=== PATIENT | female | born 2000 | race African-American/Black ===

== ENCOUNTER 2023-11-27 07:37 | Emergency (ER) | payer BC, MEDICAID ==
[~2023-11-27] VITALS: Ht 167.6 cm; Wt 81.6 kg
[2023-11-27 07:49] VITALS: O2SAT 99
[2023-11-27 08:32] LABS: BASOPHILS % 0.6 % (0.0-2.0); EOSINOPHILS % 0.8 % (0.0-5.0); HEMATOCRIT. 38.6 % (36.0-48.0); HEMOGLOBIN. 12.5 g/dL (12.0-16.0); LYMPHOCYTES % 25.5 % (20.0-50.0); MEAN CORPUSCULAR HGB CONC 32.4 g/dL (31.0-37.0); MEAN CORPUSCULAR VOLUME 80.1 fL (81.0-99.0); MEAN PLATELET VOLUME 9.5 fl (7.4-10.4); MONOCYTES % 8.4 % (2.0-8.0); NEUTROPHILS % 64.7 % (40.0-76.0); PLATELET 247 x1000/uL (130-400); RED BLOOD CELL COUNT 4.82 mill/uL (4.2-5.4); WHITE BLOOD COUNT 7.7 x1000/uL (4.5-11.0)
[2023-11-27 08:42] LABS: CHLORIDE 106 mEq/L (98-107); SODIUM 140 mEq/L (136-145)
[2023-11-27 08:43] LABS: CALCIUM 9.5 mg/dL (8.7-10.4); CARBON DIOXIDE 27 mEq/L (21-32)
[2023-11-27 08:48] LABS: GLUCOSE 92 mg/dL (70-105); UREA NITROGEN BLOOD 9 mg/dL (9-23)
[2023-11-27 08:49] LABS: HCG SCREEN NEGATIVE
[2023-11-27 09:05] LABS: CLARITY URINE CLEAR (CLEAR); COLOR URINE DARK YELLOW (YELLOW); GLUCOSE URINE NEGATIVE (NEGATIVE); KETONES URINE NEGATIVE (NEGATIVE); NITRITE URINE POSITIVE (NEGATIVE); OCCULT BLOOD URINE 1+ (NEGATIVE); PH URINE 5.5 (4.5-8.0); PROTEIN URINE NEGATIVE (NEGATIVE); SPECIFIC GRAVITY URINE 1.011 (1.005-1.030)
[2023-11-27 09:06] LABS: LEUKOCYTE ESTERASE URINE 2+ (NEGATIVE)
[2023-11-27 09:22] LABS: SQUAMOUS EPITHELIAL CELL URINE FEW /lpf (RARE/1+)
[2023-11-27 09:23] LABS: RBC URINE 0-2 /hpf (0-2); WBC URINE 25-50 /hpf (0-2)
[2023-11-27 09:24] LABS: BACTERIA URINE 4+
[2023-11-27] MEDS ORDERED: NITR100C PO (10:00)
[2023-11-27 11:27] VITALS: BP 103/69; PULSE 60; RESP 16; TEMP 97.5
== END 2023-11-27 11:28 | disposition home or self-care (01) ==
LOC: ER 07:37
DX: R10.30 Lower abdominal pain, unspecified (principal)
CPT/HCPCS: 36415; 76700; 76856; 80048; 81003; 81025; 84703; 85025; 87077; 87186; 99284

== ENCOUNTER 2024-05-24 21:06 | Emergency (ER) | payer BC, MEDICAID ==
[~2024-05-24] VITALS: Ht 165.1 cm; Wt 96.5 kg
[~2024-05-24 21:06] MED LIST: NITR100C PO
[2024-05-24 21:07] VITALS: TEMP 98.7; O2SAT 100; O2SAT 99
[2024-05-24 23:03] VITALS: BP 156/82; PULSE 84; RESP 16
[2024-05-24] MEDS: ONDANSETRON 4MG ODT PO ONE (23:03)
[2024-05-24] MEDS: IBUPROFEN 400MG TABLET PO ONE (23:03)
[2024-05-24] MEDS ORDERED: IBUP-2028 MT (23:34)
== END 2024-05-25 00:41 | disposition home or self-care (01) ==
LOC: ER 21:06
DX: R51.9 Headache, unspecified (principal); R42 Dizziness and giddiness; W01.0XXA Fall on same level from slipping, tripping and stumbling without subsequent striking against object, initial encounter; Y93.89 Activity, other specified; Y92.89 Other specified places as the place of occurrence of the external cause; Y99.8 Other external cause status
CPT/HCPCS: 99283; Q0162

== ENCOUNTER 2025-02-08 14:39 | Emergency (ER) | payer BC, MEDICAID ==
[~2025-02-08] VITALS: Ht 170.2 cm; Wt 91.0 kg
[~2025-02-08 14:39] MED LIST changes: +IBUP-2028 MT
[2025-02-08 14:41] VITALS: O2SAT 99
[2025-02-08] MEDS: IBUPROFEN 600MG TABLET PO ONE (15:55)
[2025-02-08 15:58] LABS: BASOPHILS % 0.5 % (0.0-2.0); EOSINOPHILS % 1.1 % (0.0-5.0); HEMATOCRIT. 37.4 % (36.0-48.0); HEMOGLOBIN. 12.4 g/dL (12.0-16.0); LYMPHOCYTES % 23.5 % (20.0-50.0); MEAN PLATELET VOLUME 9.4 fl (7.4-10.4); MONOCYTES % 11.2 % (2.0-8.0); NEUTROPHILS % 63.7 % (40.0-76.0); PLATELET 252 x1000/uL (130-400); RED BLOOD CELL COUNT 4.70 mill/uL (4.2-5.4); RED CELL DISTRIBUTION WIDTH 14.7 % (11.6-14.6)
[2025-02-08 16:02] LABS: CLARITY URINE TURBID (CLEAR); COLOR URINE RED (YELLOW); GLUCOSE URINE NEGATIVE (NEGATIVE); KETONES URINE NEGATIVE (NEGATIVE); LEUKOCYTE ESTERASE URINE 3+ (NEGATIVE); NITRITE URINE NEGATIVE (NEGATIVE); OCCULT BLOOD URINE 3+ (NEGATIVE); PH URINE 8.0 (4.5-8.0); PROTEIN URINE 2+ (NEGATIVE); SPECIFIC GRAVITY URINE 1.021 (1.005-1.030); UROBILINOGEN URINE 0.2 E.U./dL (0.2-1.0)
[2025-02-08 16:16] LABS: CREATININE 1.0 mg/dL (0.6-1.0); UREA NITROGEN BLOOD 11 mg/dL (9-23)
[2025-02-08 16:18] LABS: ASPARTATE AMINOTRANSFERASE 16 IU/L (<34); BILIRUBIN DIRECT < 0.1 mg/dL (<=3.0); BILIRUBIN TOTAL 0.3 mg/dL (0.1-1.0); PROTEIN TOTAL 6.9 g/dL (6.0-8.3)
[2025-02-08 16:26] LABS: *AMPHETAMINES SCREEN URINE NEGATIVE (NEGATIVE); *BARBITURATES SCREEN URINE NEGATIVE (NEGATIVE); *BENZODIAZEPINES SCREEN URINE NEGATIVE (NEGATIVE); *COCAINE SCREEN URINE NEGATIVE (NEGATIVE); CANNABINOID URINE SCREEN NEGATIVE (NEGATIVE); ECSTASY MDMA SCREEN URINE NEGATIVE (NEGATIVE); METHADONE URINE SCREEN NEGATIVE (NEGATIVE); OPIATES URINE SCREEN NEGATIVE (NEGATIVE); PHENCYCLIDINE URINE SCREEN NEGATIVE (NEGATIVE)
[2025-02-08 16:40] LABS: BACTERIA URINE TRACE; MUCUS URINE TRACE /lpf (< = 2+); RBC URINE TNTC /hpf (0-2); SQUAMOUS EPITHELIAL CELL URINE RARE /lpf (RARE/1+)
[2025-02-08 16:41] LABS: B-HCG QUANTITATIVE < 1 mIU/mL (<6)
[2025-02-08] MEDS ORDERED: IBUP-2030 MT (17:44)
[2025-02-08 19:29] VITALS: BP 104/61; PULSE 66; RESP 14; TEMP 36.8; O2SAT 100
== END 2025-02-08 19:31 | disposition home or self-care (01) ==
LOC: ER 14:39
DX: N93.9 Abnormal uterine and vaginal bleeding, unspecified (principal); Z79.899 Other long term (current) drug therapy
CPT/HCPCS: 36415; 76830; 76856; 80048; 80076; 80305; 81003; 81025; 84702; 85025; 86850; 86900; 99284